=== PATIENT | male | born 1995 | race Two or more races ===

== ENCOUNTER 2022-02-27 15:24 | Emergency (ER) | payer SELFPAY ==
[~2022-02-27] VITALS: Ht 180.3 cm; Wt 93.0 kg
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
--- NOTE | 2022-02-27 15:57 | NUR ---
[employer] AT BEDSIDE TALKING TO PATIENT
--- NOTE | 2022-02-27 16:46 | NUR ---
PT TAKEN TO RADIOLOGY FOR CT
[2022-02-27] MEDS ORDERED: HYDROCODONE/APAP 5/325MG TABLET PO ONE (17:00)
[2022-02-27] MEDS ORDERED: HYDROCODONE/APAP 5/325MG TABLET ONE (17:09)
[2022-02-27] MEDS ORDERED: IBUP-1955 PO (18:55)
[2022-02-27] MEDS ORDERED: AMOX-430 PO (18:55)
--- NOTE | 2022-02-27 19:27 | NUR ---
Patient discharged to [facility] enforcement in stable condition accompanied by 2 John. Written and verbal after care instructions given. Patient verbalizes understanding of instruction.
[2022-02-27 19:28] VITALS: BP 120/75
== END 2022-02-27 19:28 ==
LOC: EDSEX 15:26 → ER 15:26
DX: S02.2XXA Fracture of nasal bones, initial encounter for closed fracture (principal); R04.0 Epistaxis; Y08.09XA Assault by strike by other specified type of sport equipment, initial encounter; Y93.89 Activity, other specified; Y92.89 Other specified places as the place of occurrence of the external cause; Y99.8 Other external cause status
CPT/HCPCS: 99284; 70450; 70486; A6403

== ENCOUNTER 2022-03-30 14:59 | Emergency (ER) | payer SELFPAY ==
[~2022-03-30] VITALS: Ht 180.3 cm; Wt 90.7 kg
[~2022-03-30 14:59] MED LIST: AMOX-430 PO; IBUP-1955 PO
[2022-03-30] MEDS ORDERED: ONDA4TAB11 PO (15:31)
[2022-03-30] MEDS ORDERED: AZIT500T PO (15:31)
[2022-03-30] MEDS ORDERED: LOPE2CAP40 PO (15:31)
[2022-03-30 15:39] VITALS: BP 118/72
== END 2022-03-30 15:39 | disposition home or self-care (01) ==
LOC: ER 15:07
DX: K52.9 Noninfective gastroenteritis and colitis, unspecified (principal); Z60.2 Problems related to living alone; Z79.899 Other long term (current) drug therapy

== ENCOUNTER 2022-04-28 21:59 | Emergency (ER) | payer OTHER ==
[~2022-04-28] VITALS: Ht 185.4 cm; Wt 86.2 kg
[~2022-04-28 21:59] MED LIST changes: +AZIT500T PO; +LOPE2CAP40 PO; +ONDA4TAB11 PO
[2022-04-28 22:07] VITALS: BP 117/68
--- NOTE | 2022-04-28 22:07 | NUR ---
BIBS. GEN BODY HIVES AND ITCHING X 1 WEEK. BENADRYL NOT WORKING
[2022-04-28] MEDS ORDERED: HYDR453.4 TP (22:39)
== END 2022-04-28 22:51 | disposition home or self-care (01) ==
LOC: ER 21:59
DX: R21 Rash and other nonspecific skin eruption (principal); Z79.899 Other long term (current) drug therapy